=== PATIENT | male | born 1955 | race Caucasian/White ===

== ENCOUNTER 2018-10-16 07:54 | Emergency (ER) | payer OTHER ==
[~2018-10-16 07:54] MED LIST: ALLO300T2 PO; ASPI-1197 PO; ATEN50TA PO; EMPA25TA PO; INSLAN SQ; INSU100C6 SQ; METF-446 PO; SIMV40TA2 PO; TICA90TA PO; VALS1TAB54 PO
[2018-10-16] MEDS ORDERED: LIDOCAINE HCL 1% 20 ML VIAL ONE (08:10)
[2018-10-16 08:38] LABS: BASOPHILS % (AUTO) 0.8 % (0.0-5.0); EOSINOPHILS % (AUTO) 1.2 % (0.0-8.0); LYMPHOCYTES % (AUTO) 13.2 % (21.0-51.0); MEAN CORPUSCULAR HEMOGLOBIN 29.1 pg (27.0-33.0); MEAN CORPUSCULAR HGB CONC 33.1 g/dL (32.0-36.0); MEAN CORPUSCULAR VOLUME 88.1 fL (79-99); NEUTROPHILS % (AUTO) 75.8 % (40.0-77.0); PLATELET COUNT (AUTO) 123 K/uL (130-400); RED CELL DISTRIBUTION WIDTH 14.5 % (11.0-15.5); WHITE BLOOD COUNT (AUTO) 11.5 K/uL (4.8-10.8)
[2018-10-16 08:45] LABS: CREATININE 1.3 mg/dL (0.5-1.5); POTASSIUM 3.9 mmol/L (3.5-5.1)
[2018-10-16 08:50] LABS: ALBUMIN 3.5 g/dL (3.5-5.0); TOTAL PROTEIN, SERUM 7.5 g/dL (6.0-8.3)
[2018-10-16 09:35] LABS: APPEARANCE,URINE Clear (CLEAR); BILIRUBIN,URINE Negative (NEGATIVE); COLOR,URINE Dark Yellow (YELLOW); GLUCOSE, URINE (UA) >=1000 mg/dL (NEGATIVE); KETONES,URINE Negative (NEGATIVE); LEUKOCYTE ESTERASE ,URINE Negative (NEGATIVE); NITRATE,URINE Negative (NEGATIVE); OCCULT BLOOD,URINE Negative (NEGATIVE); PROTEIN,URINE POS 1+ mg/dL (NEGATIVE); UROBILINOGEN,URINE 0.2 mg/dL (0.2-1.0)
[2018-10-16 09:43] LABS: BACTERIA,URINE None Seen /HPF (None Seen); RBC,URINE 0-1 /HPF (0-1); SQUAMOUS EPITHELIAL CELL,UR 0-2 /HPF (0-2); WBC,URINE 0-1 /HPF (0-1)
[2018-10-16] MEDS ORDERED: TRAMADOL HCL 50 MG TABLET ONE (10:02)
[2018-10-16] MEDS ORDERED: CLINDAMYCIN HCL 150 MG CAP ONE (10:02)
== END 2018-10-16 10:25 | disposition home or self-care (01) ==
LOC: EDH 07:54
DX: L02.31 Cutaneous abscess of buttock (principal); R51 Headache; M79.10 Myalgia, unspecified site; I10 Essential (primary) hypertension; E11.9 Type 2 diabetes mellitus without complications; E78.00 Pure hypercholesterolemia, unspecified; Z87.891 Personal history of nicotine dependence
CPT/HCPCS: 10060; 36415; 80053; 81001; 85025

== ENCOUNTER → 2021-10-02 | Outpatient (CLI) | payer MEDICARE ==
[~2021-10-02] MED LIST changes: -VALS1TAB54 PO; +VALS1TAB8 PO
== END | disposition home or self-care (01) ==
LOC: SHCH 14:01
PROVIDERS: ATTEND Internal Medicine Cardiovascular Disease
DX: E78.5 Hyperlipidemia, unspecified (principal); I65.23 Occlusion and stenosis of bilateral carotid arteries
CPT/HCPCS: 93880

== ENCOUNTER → 2022-06-09 | Outpatient (CLI) | payer MEDICARE ==
[~2022-06-09] MED LIST changes: +REGADENOSON 0.4 MG/5 ML PF SYG IVP SCH; +SIMV-344 PO; -SIMV40TA2 PO
== END | disposition home or self-care (01) ==
LOC: SHCH 07:31
PROVIDERS: ATTEND Internal Medicine Cardiovascular Disease
DX: I25.10 Atherosclerotic heart disease of native coronary artery without angina pectoris (principal); Z79.899 Other long term (current) drug therapy
CPT/HCPCS: 78452; 96374; 93017; J2785; A9500 ×2

== ENCOUNTER 2022-07-27 06:24 | Day surgery (SDC) | payer MEDICARE ==
[2022-07-23 10:25] VITALS: BP 174/73
[2022-07-23 10:36] LABS: BASOPHILS % (AUTO) 0.9 % (0.0-5.0); EOSINOPHILS % (AUTO) 3.2 % (0.0-8.0); HEMATOCRIT 47.5 % (42-54); MEAN CORPUSCULAR HEMOGLOBIN 28.6 pg (27.0-33.0); MEAN CORPUSCULAR HGB CONC 33.1 g/dL (32.0-36.0); MEAN CORPUSCULAR VOLUME 86.5 fL (79-99); MONOCYTES % (AUTO) 6.6 % (3.0-13.0); PLATELET COUNT (AUTO) 175 K/uL (130-400); RED BLOOD CELL COUNT(AUTO) 5.49 MIL/uL (4.50-6.20); WHITE BLOOD COUNT (AUTO) 6.8 K/uL (4.8-10.8)
[2022-07-23 10:45] LABS: INR 0.99 (0.85-1.15); PROTHROMBIN TIME 10.8 SEC (9.6-11.6)
[2022-07-23 10:47] LABS: PARTIAL THROMBOPLASTIN TIME 27.7 SEC (26.3-35.5)
[2022-07-23 10:48] LABS: CREATININE 1.3 mg/dL (0.5-1.5); POTASSIUM 4.3 mmol/L (3.5-5.1)
[2022-07-23 11:01] LABS: B-TYPE NATRIURETIC PEPTIDE 16 pg/mL (0-100)
[2022-07-23 11:14] LABS: APPEARANCE,URINE CLEAR (CLEAR); BILIRUBIN,URINE NEGATIVE (NEGATIVE); COLOR,URINE YELLOW (YELLOW); GLUCOSE, URINE (UA) >=1000 mg/dL (NEGATIVE); KETONES,URINE NEGATIVE (NEGATIVE); LEUKOCYTE ESTERASE ,URINE NEGATIVE Leu/uL (NEGATIVE); NITRATE,URINE NEGATIVE (NEGATIVE); OCCULT BLOOD,URINE NEGATIVE (NEGATIVE); PH,URINE 5.5 (5.0-8.0); PROTEIN,URINE 100 mg/dL (NEGATIVE); UROBILINOGEN,URINE 0.2 mg/dL (0.2-1.0)
[2022-07-23 11:20] LABS: MUCUS,URINE RARE LPF (None Seen); WBC,URINE 0-1 /HPF (0-1)
[~2022-07-27] VITALS: Ht 182.9 cm; Wt 116.1 kg
[2022-07-27] VITALS (9 sets, daily range): BP systolic 112–150; BP diastolic 51–73
[~2022-07-27 06:24] MED LIST changes: +0.9% NACL 500ML IV.SOLN 500 ML IV SCH; +0.9%NACL 1000ML 1,000 ML IV ONE; +ASPI-1012 PO; -ASPI-1197 PO; +OMEP40CA21 PO; +PIOG15TA6 PO; -REGADENOSON 0.4 MG/5 ML PF SYG IVP SCH; +SEMA1PEN3 SQ; -TICA90TA PO
[2022-07-27] MEDS ORDERED: MEPERIDINE-PF 25 MG/ML SYG ONE ×2 (12:32→12:48)
[2022-07-27] MEDS ORDERED: LIDOCAINE HCL 400MG/20ML VIAL ONE (12:32)
[2022-07-27] MEDS ORDERED: HEPARIN 10,000 UNIT/10ML (1,000 UNIT/ML) VIAL ONE (12:33)
[2022-07-27] MEDS ORDERED: IOHEXOL-350 75 ML VIAL IV ONE (12:33)
[2022-07-27] MEDS ORDERED: NICARDIPINE 25MG INJ IV ONE (12:33)
[2022-07-27] MEDS ORDERED: NITROGLYCERIN 50MG VIAL ONE (12:33)
[2022-07-27] MEDS ORDERED: MIDAZOLAM HCL 1 MG/ML 2ML VIAL ONE ×2 (12:33→12:48)
[2022-07-27] MEDS ORDERED: IOHEXOL-350 50ML VIAL IV ONE (12:33)
[2022-07-27] MEDS ORDERED: SODIUM BICARB 50MEQ 50ML VIAL 50 ML ONE (12:35)
[2022-07-27] MEDS ORDERED: ASPIRIN 325MG EC TAB PO ONE (13:25)
[2022-07-27] MEDS ORDERED: CLOPIDOGREL 300MG TAB ONE (13:25)
[2022-07-27] MEDS ORDERED: ONDANSETRON 4MG INJ IVP PRN (14:00)
[2022-07-27] MEDS ORDERED: ACETAMINOPHEN WITH CODEINE 1 TAB TAB PO PRN ×2 (14:00)
[2022-07-27] MEDS ORDERED: CLOP-31 PO (14:44)
[2022-07-27] MEDS ORDERED: PANT40TA55 PO (14:44)
[2022-07-27] MEDS ORDERED: AEC81 PO (14:44)
[2022-07-27] MEDS: 0.9%NACL 1000ML 1,000 ML IV SCH ×2 (17:16→17:17)
== END 2022-07-27 17:15 | disposition home or self-care (01) ==
LOC: DAH 06:24
PROVIDERS: ATTEND Internal Medicine Cardiovascular Disease
DX: I25.119 Atherosclerotic heart disease of native coronary artery with unspecified angina pectoris (principal); I10 Essential (primary) hypertension; E11.51 Type 2 diabetes mellitus with diabetic peripheral angiopathy without gangrene; E78.5 Hyperlipidemia, unspecified; E66.9 Obesity, unspecified; Z79.01 Long term (current) use of anticoagulants; Z95.5 Presence of coronary angioplasty implant and graft; Z79.4 Long term (current) use of insulin; Z79.82 Long term (current) use of aspirin; Z79.899 Other long term (current) drug therapy; Z80.9 Family history of malignant neoplasm, unspecified; Z82.49 Family history of ischemic heart disease and other diseases of the circulatory system; Z79.84 Long term (current) use of oral hypoglycemic drugs; Z68.35 Body mass index [BMI] 35.0-35.9, adult
CPT/HCPCS: 80048; 83880; 85025; 85610; 85730; 81001; 36415; 71045; 93005; 85347; 82948 ×2; 93458; C9600; C1769 ×2; C1887 ×2; C1894; C1874; J3490 ×4; J7030; J1644 ×2; J2250 ×2; J2175 ×2; Q9967; A4215; A4222; A4221; A4663; A4216; A4606; A4223 ×3; 96360; 96361; 99156; 99157